=== PATIENT | male | born 1995 | race Caucasian/White ===

== ENCOUNTER 2024-09-15 06:17 | Emergency (ER) | payer OTHER, SELFPAY ==
--- NOTE | 2024-09-15 | ECG_ITS ---
Test Reason : chest pain Blood Pressure : */* mmHG Vent. Rate : 99 BPM Atrial Rate : 99 BPM P-R Int : 124 ms QRS Dur : 96 ms QT Int : 330 ms P-R-T Axes : 71 97 -4 degrees QTcB Int : 423 ms Normal sinus rhythm Rightward axis Abnormal QRS-T angle, consider primary T wave abnormality Abnormal ECG No previous ECGs available Referred By: Generic ED Physician Electronically Signed By: RICHARD KAPADIA MD
--- NOTE | ~2024-09-15 | XR_ITS ---
EXAMINATION: XR CHEST 1 VIEW HISTORY: cp COMPARISON: There are no prior studies available for comparison. FINDINGS: Two AP portable views of the chest performed at 8:03 AM are submitted. The lungs are expanded and clear. There is no pleural effusion, pneumothorax, or pulmonary vascular congestion. The heart is normal in size. The bones are intact. XR/XR chest 1V IMPRESSION: Clear lungs. Electronically signed by: Sameer Campuzano MD 09/15/2024 08:28 AM EDT
[2024-09-15 06:31] VITALS: BP 126/84; PULSE 93; RESP 18; TEMP 36.8; O2SAT 100; BMI 22.6
[2024-09-15 06:34] LABS: MANUAL DIFF FLAG NO
[2024-09-15 06:43] LABS: Hematocrit 47.4 % (42.0-52.0); Hemoglobin 16.4 g/dl (14.0-18.0); Imm Gran Abs Auto 0.00 X10*3/uL (0.00-0.03); Imm Gran Pct Auto 0.0 % (0.0-0.4); Lymphocytes Absolute Auto 1.7 X10*3/uL (1.2-4.9); Mean Corpuscular HGB Conc 34.6 g/dl (31.0-36.0); Mean Corpuscular Hemoglobin 30.7 pg (27.0-33.0); Mean Corpuscular Volume 88.8 fL (80.0-98.0); NRBC Abs Auto 0.000 X10*3/uL (0.0-0.012); NRBC Pct Auto 0.0 /100WBC (0.0-0.2); Platelet Count 269 X10*3/uL (160-400); Red Blood Count 5.34 X10*6/uL (4.60-5.80); White Blood Count 3.5 X10*3/uL (4.8-10.8)
[2024-09-15 06:50] LABS: Alanine Aminotransferase 19 U/L (0-40); Albumin Level 4.6 g/dL (3.5-5.0); Alkaline Phosphatase 68 U/L (39-117); Anion Gap 14 (12-20); Aspartate Amino Transferase 28 U/L (5-37); Blood Urea Nitrogen 10 mg/dL (9-16); Calcium 9.5 mg/dL (8.4-10.2); Carbon Dioxide 26 mmol/L (22-29); Chloride 106 mmol/L (96-108); Creatinine Clr Calc Pharmacy 127.3; Estimated Glomerular Filt Rate > 60; Lipase 25 U/L (8-78); Magnesium 1.9 mg/dL (1.6-2.6); Potassium 4.1 mmol/L (3.3-5.1); Sodium 142 mmol/L (135-145); Total Protein 7.3 g/dL (6.5-8.0)
[2024-09-15 06:55] LABS: Troponin-I High Sensitivity < 2.7 ng/L (<3.5-35.0)
--- OUTSIDE RECORDS SUMMARY | 2024-09-15 07:27 | XMS_ITS | Clinical Summary ---
Author Organization [facility] Address [address] [place] [address] Care Team Providers Care Decal Maker Name Role Phone Unavailable Primary Care Provider Unavailabl e Allergies No known active allergies Medications * This document contains information received from the source organization and may not represent a complete record from that organization. No known medications Social History Tobacco Use Types Packs/Day Years Used Date Smoking Tobacco: Some Days Alcohol Use Standard Drinks/Week Comments Not Asked 0 (1 standard drink = 0.6 oz pur e alcohol) Sex and Gender Information Value Date Recorded Sex Assigned at Not on file Legal Sex Male 11:28 PM EDT Gender Identity Not on file Sexual Orientation Not on file Last Filed Vital Signs Vital Sign Reading Time Taken Comments Blood Pressure 110/68 08/25/2014 1:02 PM EDT Pulse 67 08/25/2014 1:02 PM EDT Temperature - - Respiratory Rate - - Oxygen Saturation - - Inhaled Oxygen Concentration - - Weight 73.5 kg (162 lb) 08/25/2014 1:02 PM EDT Height 188 cm (6' 2 ) 08/25/2014 1:02 PM EDT Body Mass Index 20.8 08/25/2014 1:02 PM EDT Plan of Treatment Health Maintenance Due Date Last Done Comments Hepatitis C Screening 1995 DTaP/Tdap/Td (1 - Tdap) 2011 Hep B (1 of 3 - 19+ 3-dose series) 02/25/2012 COVID-19 Vaccine ( - 2023-2 5 season) 2023 Influenza (#1) 2024 Zoster (Shingrix) (1 of 2) 2043 HPV Vaccine Aged Out No longer eligi ble based on patient's age to complete this topic Hep A Aged Out No longer eligi ble based on patient's age to complete this topic Hib Aged Out No longer eligi ble based on patient's age to complete this topic Meningococcal ACWY Aged Out No longer eligible based on patient's age to complete this topic Pneumococcal Aged Out No longer eligi ble based on patient's age to complete this topic Insurance FFS
--- NOTE | 2024-09-15 07:51 | ED.CHESTPAIN ---
HPI - Chest Pain General Chief Complaint: Chest Pain Stated Complaint: Chest Pain Time Seen by Provider: 09/15/24 07:09 History of Present Illness HPI narrative: Patient is a 29-year-old male presents today with having some chest pain that lasts for few sec. Comes and go no specific trigger patient denies any diaphoresis. No coughing or congestion or upper respiratory symptoms. Patient is from home. No nausea no vomiting. No travel history. No history of blood clots. Previous history of smoking quit 5 years ago smoked for 5 years. No history of diabetes, hypertension, high cholesterol sudden in the family. Patient is from home. Related Data Allergies Allergy/AdvReac Type Severity Reaction Status Date / Time No Known Allergies Allergy Verified 09/15/24 06:33 Review of Systems Review of Systems: Positive chest pain Yes all other systems are reviewed and are negative [facility] Past Medical History Attestation statement: The following information was validated with the patient. Social History Social History Advance Directives: No Advance Directives Information Provided: No Physical Exam Vital Signs: Vital Signs: Last Vital Signs Temp 98.2 F 09/15/24 06:31 Pulse 73 09/15/24 08:27 Resp 12 09/15/24 08:27 BP 117/75 09/15/24 08:27 Pulse Ox 98 09/15/24 08:27 O2 Del Method Room Air 09/15/24 08:27 BMI result Body Mass Index 22.6 Appearance: Alert. Oriented X3. No acute distress. Eyes: Pupils equal, round and reactive to light. ENT: Pharynx normal. Neck: Normal inspection. Neck supple. No lymph nodes noted. No crepitus CVS: Normal heart rate and rhythm. Pulses normal. Normal S1 and S2 Respiratory: No respiratory distress. Breath sounds normal. No Wheezing. No rales Abdomen: Soft and nontender. No rigidity. No distention. good BS x4 Skin: Skin warm and dry. Normal skin color. Normal skin turgor. Extremities: No lower extremity edema. Neurovascular intact to all extremities. No Lacerations. No Rash Neuro: Oriented X 3. No motor deficit. No sensory deficit. Moving all extermities. No slurred speech Medical Decision Making Medical Decision Making MDM Narrative: Well-appearing no acute distress. My interpretation of his chest x-ray is grossly negative for pneumonia no pneumothorax. Patient's cardiac enzymes negative. History not consistent with ACS 29 years old minimal risk factor. D-dimer is less than 150. In the setting of an atypical history unlikely to have PE. There is no evidence for DVT. Patient's CPK is 85. No evidence for rhabdo. Patient's CRP is 0.12. No evidence for inflammation. Differential Diagnosis Differential Diagnoses: The differential diagnosis associated with the presentation includes Pneumonia, mi, ACS Admission/Observation Consideration of admission/observation: Escalation of care including admission/observation considered Lab Data MDM Lab Attestation statement: I reviewed the patient's lab results. 09/15/24 06:30 09/15/24 06:30 Labs: Lab Results 09/15/24 09/15/24 Range/Units 06:30 08:15 WBC 3.5 L (4.8-10.8) X10*3/uL RBC 5.34 (4.60-5.80) X10*6/uL Hgb 16.4 (14.0-18.0) g/dl Hct 47.4 (42.0-52.0) % MCV 88.8 (80.0-98.0) fL MCH 30.7 (27.0-33.0) pg MCHC 34.6 (31.0-36.0) g/dl RDW 11.8 (11.0-16.0) % Plt Count 269 (160-400) X10*3/uL MPV 10.2 (9.4-12.4) fL Immature Gran % (Auto) 0.0 (0.0-0.4) % Neut % (Auto) 38.3 L (45-73) % Lymph % (Auto) 46.7 H (20-40) % [place] % (Auto) 12.2 H (2-11) % Eos % (Auto) 1.7 (0-4) % Baso % (Auto) 1.1 (0-2) % Lymph # (Auto) 1.7 (1.2-4.9) X10*3/uL [place] # (Auto) 0.4 (0.1-1.2) X10*3/uL Eos # (Auto) 0.1 (0.0-0.4) X10*3/uL Baso # (Auto) 0.0 (0.0-0.2) X10*3/uL Abs Immat Gran (auto) 0.00 (0.00-0.03) X10*3/uL Absolute Neuts (auto) 1.4 L (2.0-8.3) x10*3/uL Absolute Nucleated RBC 0.000 (0.0-0.012) X10*3/uL Nucleated RBC % (auto) 0.0 (0.0-0.2) /100WBC ESR 1 (0-15) MM/HR D-Dimer High Sensitivty < 150 NG/ML Sodium 142 (135-145) mmol/L Potassium 4.1 (3.3-5.1) mmol/L Chloride 106 (96-108) mmol/L Carbon Dioxide 26 (22-29) mmol/L Anion Gap 14 (12-20) BUN 10 (9-16) mg/dL Creatinine 0.95 (0.5-1.4) mg/dL Estim Creat Clear Calc 127.3 Estimated GFR > 60 Random Glucose 96 (60-115) mg/dL Calcium 9.5 (8.4-10.2) mg/dL Magnesium 1.9 (1.6-2.6) mg/dL Total Bilirubin 1.4 H (0.0-1.0) mg/dL AST 28 (5-37) U/L ALT 19 (0-40) U/L Alkaline Phosphatase 68 (39-117) U/L Total Creatine Kinase 85 (38-174) U/L Troponin I High Sens < 2.7 < 2.7 (<3.5-35.0) ng/L C-Reactive Protein 0.12 (< or = 0.50) mg/dL Total Protein 7.3 (6.5-8.0) g/dL Albumin 4.6 (3.5-5.0) g/dL Lipase 25 (8-78) U/L Independent Interpretation I performed an independent interpretation of an: EKG (Sinus heart rate is 90 WV QRS QTC normal no acute ST segment elevation) and Plain X-Ray (Chest x-ray negative) Radiology Impression Discussion of test interpretation with radiology: I have reviewed the radiologist's reading. Discharge Plan Discharge Clinical Impression: Chest pain Patient Disposition: Home, Self-Care Instructions: Chest Pain (ED) Referrals: Physician,Unknown J [Primary Care Provider, Medical] Referral Note: Follow-up in a few days Hector Martell MD [Physician, Cardiology] - 09/22/24 Print Language: Irish
[2024-09-15 08:27] VITALS: BP 117/75; PULSE 73; RESP 12; O2SAT 98
[2024-09-15 08:31] LABS: D Dimer High Sensitivity < 150 NG/ML
[2024-09-15 08:45] LABS: Troponin-I High Sensitivity < 2.7 ng/L (<3.5-35.0)
[2024-09-15 09:16] VITALS: BP 117/75; PULSE 73; RESP 12; TEMP 36.8; O2SAT 98
== END 2024-09-15 09:20 | disposition home or self-care (01) ==
PROVIDERS: Emergency Provider Emergency Medicine Emergency Medical Services
DX: R07.89 Other chest pain (principal); Z87.891 Personal history of nicotine dependence; Z79.899 Other long term (current) drug therapy
CPT/HCPCS: 36415; 71045; 80053; 82550; 83690; 83735; 84484; 85025; 85379; 85652; 86140; 93005; 99283; 99285

== ENCOUNTER → 2024-09-15 06:21 | Outpatient (BNV) | payer OTHER, SELFPAY | PROVIDERS: Emergency Provider Emergency Medicine Emergency Medical Services; Visit Provider Internal Medicine Cardiovascular Disease | DX: R94.31 Abnormal electrocardiogram [ECG] [EKG] (principal); R07.9 Chest pain, unspecified | CPT/HCPCS: 93010 ==

== ENCOUNTER → 2024-09-15 07:50 | Outpatient (BNV) | payer OTHER, SELFPAY | PROVIDERS: Emergency Provider Emergency Medicine Emergency Medical Services; Visit Provider Radiology Diagnostic Radiology | DX: R07.9 Chest pain, unspecified (principal) | CPT/HCPCS: 71045 ==

== ENCOUNTER 2024-09-29 12:36 | Outpatient (AMB) | payer OTHER, SELFPAY ==
[2024-09-29 12:55] VITALS: BP 100/72; PULSE 97; BMI 21.3
--- NOTE | 2024-09-29 12:55 | A.OFFVIS_ITS ---
Vital Signs 09/29/24 12:55 Height 6 ft 2 in Weight 166 lb 3.657 oz BMI 21.3 BP 100/72 Blood Pressure Location Lt brachial Position Sitting Pulse 97 Pulse Source Pulse Oximeter Intake Visit Reasons: [facility] [place] 2 [place] f/up Financial Manager Required: No Allergies No Known Allergies Allergy (Verified 09/29/24 12:58) Medication List - Last Reconciled 09/29/24 by Vy Waggoner, JAYESH-C No Known Home Meds HPI [facility] d/c 2 week f/up: Details: Jeremi is a 29-year-old male with no significant past medical history who was recently seen in the emergency room with report of left-sided chest discomfort. He ruled out for PE and ACS. He was referred to Cardiology in follow-up. Today he presents for cardiology consultation. He tells me that for the last few weeks he has been getting intermittent discomfort in the left chest region that he describes as mild, occurring randomly and resolving without treatment. At times he feels that he be bends over and reaches towards the ground with his arms he will notice the discomfort. He had been exercising routinely and doing weight lifting but stopped in recent weeks due to this symptom and his concern regarding heart disease. He has no chest discomfort brought on by walking or stair climbing. 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 He has been noticing some heart palpitations and some shortness of breath with activity which cause him concern. No lightheadedness, presyncope, syncope, falls. Prior smoker, quit 5 years ago. No routine alcohol use. Mother of cancer age 64. No heart disease in his family that he is aware of. [facility] Family History (Updated 09/29/24 @ 13:35 by Vy Waggoner, JAYESH-C) Mother No problems noted. Social History (Updated 09/29/24 @ 13:35 by Vy Waggoner, JAYESH-C) Patient Tobacco Use Status: Former Tobacco user Review of Systems Const All systems reviewed & are unremarkable except as noted in HPI and below ENT Denies dizziness Card Reports chest pain, Reports chest pain at rest, Reports chest pain with activity, Reports rapid heart rate, Denies pedal edema, Denies edema, Denies leg edema, Denies lightheadedness, Denies palpitations, Denies dyspnea, Reports dyspnea on exertion and Denies orthopnea Resp Denies cough, Denies dyspnea and Reports dyspnea on exertion GI Denies hematochezia and Denies change in stool character Musc Denies abnormal gait, Denies limited range of motion, Denies muscle cramps, Denies muscle weakness, Denies numbness, Denies radiating pain into limb, Denies stiffness and Denies tingling Neuro Denies abnormal gait, Denies dizziness, Denies numbness and Denies tingling Endo Denies palpitations Physical Exam Vital Signs: Last Vital Signs Pulse 97 09/29/24 12:55 BP 100/72 09/29/24 12:55 BMI result Body Mass Index 21.3 Const General: cooperative, healthy appearing, comfortable and no acute distress Orientation/consciousness: patient oriented x3 Neck Neck: Yes normal visual inspection Resp Effort & Inspection: normal respiratory effort Auscultation: clear to auscultation bilaterally, no crackles, no rales, no rhonchi and no wheezes Cardio Rate: regular rate Rhythm: regular rhythm Heart sounds: S1 normal heart sound present, S2 normal heart sound present, no gallops, no murmurs and no rubs GI Inspection: Yes normal to inspection Skin General skin exam: no rashes or lesions noted Neuro General: patient oriented x3 Extrem General: Yes normal to inspection, No no pedal edema and No calf tenderness Psych Appearance: grossly normal Mental Status: mental status grossly normal Speech and movement: Normal speech and movement present Assessment & Plan Assessment & Plan (1) Chest discomfort: Code(s): R07.89 - Other chest pain Category: Medical Plan: Atypical sounding chest discomfort. For evaluation and ruled out for ACS and PE. Continues to have symptoms, including chest discomfort, shortness of breath, heart palpitations that cause him concern. Low cardiac risk profile. Will check an exercise stress test to evaluate for ischemia. Will check echocardiogram to evaluate for structural heart disease. Will order Holter monitor to assess for any arrhythmia. Instructed on activity as tolerated. It is possible his chest discomfort is musculoskeletal in nature. It is possible that his shortness of breath and heart palpitations could be related to anxiety. Cardiology follow-up in 4-6 weeks, sooner if needed. ER care if needed for concerning symptoms. (2) Palpitation: Code(s): R00.2 - Palpitations Category: Medical Plan: As above (3) Shortness of breath: Code(s): R06.02 - Shortness of breath Category: Medical Plan: As above Plan Time spent on chart review, documentation, interviewing assessment Orders: Orders CA stress test Today R00.2 - Palpitations, R06.02 - Shortness of breath, R07.89 - Other chest pain ECG 3 day holter monitor Today R00.2 - Palpitations, R06.02 - Shortness of breath, R07.89 - Other chest pain CA echo transthoracic complete Today R00.2 - Palpitations, R06.02 - Shortness of breath, R07.89 - Other chest pain Coding Level of Care Code New Pt Level 4 (53544) Complex EM visit Add On G2211 Diagnoses Chest discomfort R07.89 Palpitation R00.2 Shortness of breath R06.02 Time Spent (min) 32
--- OUTSIDE RECORDS SUMMARY | 2024-09-29 13:46 | XMS_ITS | Clinical Summary ---
Author Organization [facility] Address [address] [place] [address] Care Team Providers Care Sand Slinger Name Role Phone Unavailable Primary Care Provider [...]
== END 2024-09-29 13:33 | disposition home or self-care (01) ==
LOC: HO.HCS 12:37
PROVIDERS: Visit Provider Nurse Practitioner Family
DX: R07.89 Other chest pain (principal); R00.2 Palpitations; R06.02 Shortness of breath
CPT/HCPCS: 99204

== ENCOUNTER → 2024-09-29 12:36 | Outpatient (BNVA) | payer OTHER, SELFPAY | PROVIDERS: Visit Provider Nurse Practitioner Family | DX: R06.02 Shortness of breath (principal); R07.89 Other chest pain; R00.2 Palpitations | CPT/HCPCS: 99202 ==

== ENCOUNTER → 2024-10-02 14:53 | Outpatient (REF) | payer OTHER, SELFPAY ==
--- NOTE | 2024-10-02 14:56 | CA_ITS ---
Transthoracic Echocardiogram Patient (Last, First, Middle): Jeremi Cabezas, Gender: Male Date of : 1995 Age: 29 Procedure Date: 10/02/2024 Procedure Type: Transthoracic Echocardiogram Location: OP Height: 187. cm Weight: 77.11 kg BSA: 2.02 m2 Heart Rate: 76 bpm BP: 132 / 65 mmHg Steward/Stewardess Third: ANGELITO Referring MD: Vy Waggoner OUTSIDE REPAIRER SPECIAL-Kerri Symptoms: R07.89 - Other chest pain Study Quality: Adequate ECG Rhythm: Sinus Conclusions: - The left ventricular systolic function is hyperdynamic. The visually estimated ejection fraction is >70%. - No obvious valvular pathology seen on this study. Findings Left Ventricle Normal left ventricular cavity size. There is normal left ventricular wall thickness. The left ventricular systolic function is hyperdynamic. The visually estimated ejection fraction is >70%. There is no evidence of regional wall motion abnormalities. Diastolic function is normal for age. Right Ventricle Mildly increased right ventricular cavity size. There is normal right ventricular systolic function. Atria Both atria are normal in size. Aortic Valve There is a normal trileaflet aortic valve. There is no aortic valve stenosis. There is no aortic valve regurgitation. Mitral Valve The mitral valve appears normal. There is no mitral valve regurgitation. There is no mitral valve stenosis. Pulmonic Valve The pulmonic valve is likely normal. Tricuspid Valve There is trace tricuspid valve regurgitation. There is no evidence of pulmonary hypertension. Great Vessels The asc aorta and aortic arch are normal in size. Venous The inferior vena cava is mildly dilated and collapses greater than 50% with inspiration. Pericardium/Pleural There is no evidence of pericardial effusion. Prior Study Comparison No prior study available for comparison. Recommendations, Care & Conclusions No obvious valvular pathology seen on this study. Measurements 2D Linear Measurements IVSd: 0.64 0.6-0.9/0.6-1.0 cm LVIDd: 4.77 3.9-5.3/4.2-5.9 cm LVIDd Index: 2.36 2.4-3.2/2.2-3.1 cm/m2 LVIDs: 2.82 2.0-3.6 cm LVPWd: 0.78 0.7-1.1 cm LA Diam: 2.90 2.7-3.8/3.0-4.0 cm LAIDs Index: 1.44 1.5-2.3 cm/m2 LV Mass: 134.15 67-162/88-224 g LV Mass Index: 66.41 43-95/49-115 g/m2 LVOT Diam: 2.30 3.0+(-)1.3 cm 2D Systolic Function EF 4C: 69.10 >55% EF 2C: 77.00 >55% EF BiP: 73.90 >55% Mitral Valve MV Pk E: 0.86 MV PK A: 0.72 MV Decel Time: 283.00 E/A: 1.20 E'Lateral: 18.90 E'Medial: 12.40 E/E' Med: 6.90 E/E' Lat: 4.50 PHT: 83.00 MVA PHT: 2.65 Decel [place]: 3.03 Aortic Valve AoV Pk Fadi: 1.23 AoV Mn Fadi: 0.88 AoV VTI: 0.26 AoV Pk Grad: 6.00 Aov Mn Grad: 3.00 BELKIS Cont.VTI: 3.71 LVOT LVOT Pk Fadi: 1.12 LVOT Mn Fadi: 0.83 LVOT VTI: 0.23 LVOT Pk Grad: 5.00 LVOT Mn Grad: 3.00 LVOT Diam: 2.30 LVOT Area: 4.15 Diastolic Function MV Pk E: 0.86 MV Pk A: 0.72 E/A: 1.20 E'Medial: 12.40 E/E' Med: 6.90 E' Laterial: 18.90 E/E' Lat: 4.50 Right Ventricle TAPSE (mm): 26.90 TVS' Fadi: 14.60 Tricuspid Valve TR Pk Fadi: 2.01 TR Pk Grad: 16.00 RA Press: 3.00 RVSP: 19.00 Great Vessels Aorta Sinus of Valsalva: 3.30 2.0-3.5 cm Ao Asc: 2.90 2.1-3.4 cm Ao Arch: 2.40 Pulmonary Valve PV Pk Fadi: 1.15 Peak PV Grad: 5.00 Updated in Other Vendor System with Status of Final Hector Martell MD electronically signed on 10/03/2024 12:17:53 PM with status of Final
--- OUTSIDE RECORDS SUMMARY | 2024-10-02 14:56 | XMS_ITS | Clinical Summary ---
Author Organization [facility] Address [address] [place] [address] Care Team Providers Care Fig Bar Machine Operator Name Role Phone Unavailable Primary Care Provider [...]
== END ==
LOC: HO.CARD 14:53
PROVIDERS: Visit Provider Nurse Practitioner Family
DX: R00.2 Palpitations (principal); R07.89 Other chest pain; R06.02 Shortness of breath
CPT/HCPCS: 93306

== ENCOUNTER → 2024-10-02 14:56 | Outpatient (BNV) | payer OTHER, SELFPAY | PROVIDERS: Visit Provider Internal Medicine | DX: I51.89 Other ill-defined heart diseases (principal) | CPT/HCPCS: 93306 ==

== ENCOUNTER → 2024-12-04 08:19 | Outpatient (REF) | payer OTHER, SELFPAY ==
--- NOTE | 2024-12-04 08:26 | HM_ITS ---
* Total monitoring time 3 days. * Underlying rhythm is sinus with an average rate of 68/Min. * Very rare ventricular ectopy. * No significant pauses or high-grade AV blocks. * No patient markers or diary events. MTDD
--- NOTE | 2024-12-04 08:26 | CA_ITS ---
Acquisition Time: 2024-12-04 08:38:17 Total Exercise Time: 00:08:59 Test Indications: Dyspnea CP,Palpitations Medications: NONE Protocol: MARIAH Max HR: 171 BPM 90% of Pred: 189 BPM Max BP: 130/80 mmHG Max Work Load: 10.1 METS Exercise stress test with exercise 8 mins 59 secs of Mariah Protocol, achieving 91% MPHR, without any reported symptoms of SOB or CP, with isolated PAC, with normotensive response to exercise. Without any EKG changes meeting criteria for ischemia. In recovery, pt continued to feel well. Test reviewed with Dr. Martell. Referred By: Vy Waggoner Electronically Signed By: Elmer Day
--- OUTSIDE RECORDS SUMMARY | 2024-12-04 08:48 | XMS_ITS | Clinical Summary ---
Author Organization [facility] Address [address] [place] [address] Care Team Providers Care Machine Lacer Name Role Phone Unavailable Primary Care Provider [...] COVID-19 Vaccine ( - 2023-2 5 season) 2024 Influenza (#1) 2024 Zoster (Shingrix) (1 of 2) 2043 HPV Vaccine (No Doses Required) Completed Hep A Aged Out No longer eligi [...]
== END ==
LOC: HO.CARD 08:19
PROVIDERS: Visit Provider Nurse Practitioner Family
DX: R07.89 Other chest pain (principal); R00.2 Palpitations; R06.02 Shortness of breath
CPT/HCPCS: 93017; 93242

== ENCOUNTER → 2024-12-04 08:26 | Outpatient (BNV) | payer OTHER, SELFPAY | DX: I49.1 Atrial premature depolarization (principal) | CPT/HCPCS: 93016; 93018 ==

== ENCOUNTER 2025-01-08 08:28 | Outpatient (AMB) | payer OTHER, SELFPAY ==
[2025-01-08 08:30] VITALS: BP 100/62; PULSE 90; BMI 23.0
--- NOTE | 2025-01-08 08:30 | MHC.OFFVIS ---
Vital Signs 01/08/25 08:30 Height 6 ft 2 in Weight 179 lb 0.246 oz BMI 23.0 BP 100/62 Blood Pressure Location Lt brachial Position Sitting Pulse 90 Pulse Source Pulse Oximeter Intake Visit Reasons: 6 wk s/p echo/holter/ ett r/s 11-12-24 Allergies No Known Allergies Allergy (Verified 01/08/25 08:32) Medication List - Last Reconciled 01/08/25 by Vy Waggoner NP-C No Known Home Meds HPI HPI 6 wk s/p echo/holter/ ett r/s 11-12-24: Details: Jeremi is a 29-year-old male with no significant past medical history who was recently seen in the emergency room with report of left-sided chest discomfort. He ruled out for PE and ACS. He was referred to Cardiology in follow-up. On last visit a Holter monitor, stress test and echocardiogram were done and he now presents for follow-up. Today he reports that he still gets an intermittent discomfort in the left chest presents for cardiology consultation. He is finding that if he eats a meal with unhealthy type foods he will get his symptoms more. He denies having any reflux symptoms. At times he feels that he be bends over and reaches towards the ground with his arms he will notice the discomfort. He has not been exercising recently due to concerns for his heart. He has no chest discomfort brought on by walking or stair climbing. He gets brief occasional heart palpitations lasting 1-2 seconds. At times he will get shortness of breath with exertion. No shortness of breath at rest, PND, orthopnea or edema. 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 Prior smoker, quit 5 years ago. Takes no home medications. [facility] Family History Mother No problems noted. Social History Patient Tobacco Use Status: Former Tobacco user Review of Systems Const All systems reviewed & are unremarkable except as noted in HPI and below ENT Denies dizziness Card Reports chest pain, Denies chest pain at rest, Denies chest pain with activity, Denies rapid heart rate, Denies pedal edema, Denies edema, Denies leg edema, Denies lightheadedness, Denies palpitations, Denies dyspnea, Denies dyspnea on exertion and Denies orthopnea Resp Denies cough, Denies dyspnea and Denies dyspnea on exertion GI Denies hematochezia and Denies change in stool character Musc Denies abnormal gait, Denies limited range of motion, Denies muscle cramps, Denies muscle weakness, Denies numbness, Denies radiating pain into limb, Denies stiffness and Denies tingling Neuro Denies abnormal gait, Denies dizziness, Denies numbness and Denies tingling Endo Denies palpitations Physical Exam Vital Signs: Last Vital Signs Pulse 90 01/08/25 08:30 BP 100/62 01/08/25 08:30 BMI result Body Mass Index 23.0 Assessment & Plan Assessment & Plan (1) Chest discomfort: Code(s): R07.89 - Other chest pain Category: Medical Plan: Atypical sounding chest discomfort with prior ED evaluation and ruled out for ACS and PE. On last visit he Continued to have symptoms, including chest discomfort, shortness of breath, heart palpitations that cause him concern. Low cardiac risk profile. Exercise stress test done 12/04/2024 with exercise 9 minutes, no angina, no EKG changes of ischemia. Echocardiogram 10/02/2024 with EF greater than 70%, no valve abnormalities or regional wall motion abnormalities. Holter monitor done 12/04/2024 for 3 days showed sinus rhythm with average heart rate 68 beats per minute, rare ventricular ectopy. Test results reviewed with him in detail. Offered reassurance that symptoms are noncardiac in nature. Suggested further evaluation for noncardiac causes. Possible GERD. Recommended he trial OTC acid reducing medication and/or Further discuss with his PCP. He may resume exercise as tolerated. Cardiology follow-up PRN. (2) Palpitation: Code(s): R00.2 - Palpitations Category: Medical Plan: As above (3) Shortness of breath: Code(s): R06.02 - Shortness of breath Category: Medical Plan: As above Plan Time spent on chart review, documentation, discussing test results interview, assessment Coding Level of Care Code Est Pt Level 3 (16071) Complex EM visit Add On G2211 Diagnoses Chest discomfort R07.89 Palpitation R00.2 Shortness of breath R06.02 Time Spent (min) 22
== END 2025-01-08 08:54 | disposition home or self-care (01) ==
LOC: HO.HCS 08:29
PROVIDERS: Visit Provider Nurse Practitioner Family
DX: R07.89 Other chest pain (principal); R00.2 Palpitations; R06.02 Shortness of breath
CPT/HCPCS: 99213

== ENCOUNTER → 2025-01-08 08:28 | Outpatient (BNVA) | payer OTHER, SELFPAY | PROVIDERS: Visit Provider Nurse Practitioner Family | DX: R07.89 Other chest pain (principal); R00.2 Palpitations; R06.02 Shortness of breath | CPT/HCPCS: 99212 ==